=== PATIENT | male | born 1975 | race Two or more races ===

== ENCOUNTER → 2018-01-29 | Day surgery (SDC) | payer OTHER ==
[~2018-01-29] MED LIST: DESFLURANE 31 TO 60 MINUTES IH; DESFLURANE 61 TO 120 MINUTES IH; DEXAMETHASONE SOD PHOS 20 MG/5 ML VIAL.; GLYCOPYRROLATE 1 MG/5 ML VIAL.; KETOROLAC 30 MG/ML INJ FOR OR. INJ; LIDOCAINE 1% PF 2 ML VIAL. ID; ONDANSETRON PF 4 MG/2 ML VIAL.; ONDANSETRON PF 4 MG/2 ML VIAL. IV; PROCHLORPERAZINE 10 MG/2 ML VIAL. IV; PROPOFOL 20 ML IV; ROCURONIUM 50 MG/5 ML VIAL.; SURGICEL HEMOSTAT 4X8 EACH.; ceFAZolin 2GM PREMIX 2 GM/50 ML BAG IV; fentaNYL PF VIAL 100 MCG/2 ML VIAL; fentaNYL PF VIAL 100 MCG/2 ML VIAL IV; oxyCODONE/APAP 5/325 1 TAB TABLET PO
[2018-01-29] MEDS: BUPIVAC MPF-EPI 0.5%-1:200000 30 ML VIAL. INJ (09:29)
[2018-01-29] MEDS: IV RINGERS,LACTATED 1000ML 1,000 ML IV (10:04)
[2018-01-29] MEDS: IOHEXOL 300 MG/ML 100ML VIAL. (11:06)
[2018-01-29] MEDS: MORPHINE SULFATE 4 MG/ML DISP.SYRIN. IV (12:15)
[2018-01-29] MEDS: oxyCODONE/APAP 5/325 1 TAB TABLET PO (12:28)
== END ==
LOC: SURG 09:00
DX: K80.10 Calculus of gallbladder with chronic cholecystitis without obstruction (principal)
CPT/HCPCS: 47563; 74300; C1769; J0690; J1100; J1885; J2270; J2405; J2704; J3010; J3490; J7030; J7120; Q9967